=== PATIENT | male | born 1985 | race Caucasian/White ===

== ENCOUNTER 2023-11-27 13:22 | Emergency (ER) | payer OTHER, SELFPAY ==
[2023-11-27 13:25] VITALS: BP 164/111; PULSE 110; RESP 18; TEMP 37; O2SAT 100; BMI 27.8
--- NOTE | 2023-11-27 13:49 | RAD_ITS ---
EXAM: XR CHEST, 1 VIEW CLINICAL INDICATION: injury TECHNIQUE: Frontal view of the chest. COMPARISON: No relevant prior studies available. FINDINGS: LUNGS AND PLEURAL SPACES: Normal. No consolidation or edema. No pneumothorax. No effusion. HEART: Normal heart size. MEDIASTINUM: No mediastinal or hilar mass. BONES/JOINTS: No acute abnormality. RAD/Chest 1 View (Portable) IMPRESSION: No acute cardiopulmonary disease. Electronically Signed: Hemal Hassan MD at 15:05 EST ,
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
[2023-11-27] MEDS: Ibuprofen 600 MG Tablet PO (14:17)
--- NOTE | 2023-11-27 14:29 | RAD_ITS ---
EXAM: XR STERNUM, 2 OR MORE VIEWS CLINICAL INDICATION: pain TECHNIQUE: Lateral and oblique views of the sternum. COMPARISON: No relevant prior studies available. FINDINGS: BONES/JOINTS: No acute abnormality. SOFT TISSUES: Normal. No soft tissue swelling or gas. No radiopaque foreign body. RAD/Sternum min 2 Views IMPRESSION: Intact sternum. Electronically Signed: Hemal Hassan MD at 15:05 EST ,
--- OUTSIDE RECORDS SUMMARY | 2023-11-27 14:39 | XMS RPT_ITS | CCD ---
Author Name Unknown Address [address] [place] [address] Organization [facility] Care Team Providers Care Hardware Sales Assistant Name Role Phone Sha Luu APRN.CNP Primary Care Provider Lalitha Frausto MD Primary Care Provider LALITHA FRAUSTO Primary Care Unavailable SHA LUU Attending Unavailable SHA LUU Attending Unavailable SHA LUU Primary Care Unavailable Medications Completed/Discontinued Medications Medication Drug Class(es) Dates Sig (Normalized) Sig (Original) hydroCHLOROthiazide 12.5 mg / lisinopril 20 mg oral tablet (5 sources) Thiazide Diuretic, Angiotensin Converting Enzyme Inhibitor Start: 12-07-2022 take 1 tablet by mouth once daily in the morning lisinopril-hydr oCHLOROthiazide (PRINZIDE,ZESTO RETIC) 20-12.5 mg per tablet Indications: Hypertension, essential Take 1 tablet by mouth every morning. 90 tablet 3 12/07/2022 Active Problems Active Problems Problem Classification Problem Date Documented Da te Episodic/Chronic Essential hypertension (3 sources) Essential hypertension; Translations: [Essential (primary) hypertension] Onset: 12-07-2022 Chronic Viral infection (6 sources) Herpes simplex; Translations: [Herpesviral infection, unspecified] Onset: 12-24-2008 12-24-2008 Episodic Past or Other Problems Problem Classification Problem Date Documented Da te Episodic/Chronic Immunizations and screening for infectious disease (5 sources) Patient encounter status; Translations: [Encounter for immunization] Onset: 10-20-2018 Episodic Other and unspecified benign neoplasm (8 sources) Dysplastic nevus of trunk; Translations: [Melanocytic nevi of trunk] Onset: 02-04-2011 02-04-2011 Episodic Other and unspecified benign neoplasm (4 sources) Melanocytic nevus of trunk; Translations: [Melanocytic nevi of trunk] Onset: 02-04-2011 02-04-2011 Episodic Other and unspecified benign neoplasm (4 sources) Melanocytic nevus of upper limb; Translations: [Melanocytic nevi of unspecified upper limb, including shoulder] Onset: 02-04-2011 02-04-2011 Episodic Other and unspecified benign neoplasm (4 sources) Melanocytic nevus of scalp; Translations: [Melanocytic nevi of scalp and neck] Onset: 02-04-2011 02-04-2011 Episodic Results Test Name Value Interpretation Reference Range Facil ity Vital Signs Date Time Vital Sign Value Performing Clinician Faci lity 07-30-2023 07:57-0400 Diastolic blood pressure 84 mm[Hg] Sha Jus ROOF TRUSS BUILDER.INFRASTRUCTURE ANALYST Work Phone: [facility] 07-30-2023 07:57-0400 Systolic blood pressure 132 mm[Hg] Sha Jus ROOF TRUSS BUILDER.INFRASTRUCTURE ANALYST Work Phone: [facility] 07-30-2023 07:45-0400 Body weight 89.36 kg Sha Jus ROOF TRUSS BUILDER.INFRASTRUCTURE ANALYST Work Phone: [facility] 07-30-2023 07:45-0400 Heart rate 85 /min Sha Jus ROOF TRUSS BUILDER.INFRASTRUCTURE ANALYST Work Phone: [facility] 07-30-2023 07:45-0400 Respiratory rate 16 /min Sha Jus ROOF TRUSS BUILDER.INFRASTRUCTURE ANALYST Work Phone: [facility] 12-07-2022 07:24-0500 Diastolic blood pressure 84 mm[Hg] Sha Jus ROOF TRUSS BUILDER.INFRASTRUCTURE ANALYST Work Phone: [facility] 12-07-2022 07:24-0500 Systolic blood pressure 130 mm[Hg] Sha Jus ROOF TRUSS BUILDER.INFRASTRUCTURE ANALYST Work Phone: [facility] 12-07-2022 07:15-0500 Body temperature 97.11 [degF] Sha Jus ROOF TRUSS BUILDER.INFRASTRUCTURE ANALYST Work Phone: [facility] 12-07-2022 07:15-0500 Body weight 91.63 kg Sha Jus ROOF TRUSS BUILDER.INFRASTRUCTURE ANALYST Work Phone: [facility] 12-07-2022 07:15-0500 Heart rate 87 /min Sha Jus ROOF TRUSS BUILDER.INFRASTRUCTURE ANALYST Work Phone: [facility] 12-07-2022 07:15-0500 Respiratory rate 16 /min Sha Jus ROOF TRUSS BUILDER.INFRASTRUCTURE ANALYST Work Phone: [facility] 12-07-2022 07:15-0500 SaO2% (BldA) [Mass fraction] 99 % Sha Jus ROOF TRUSS BUILDER.INFRASTRUCTURE ANALYST Work Phone: [facility] 06-09-2022 13:22-0400 Diastolic blood pressure 88 mm[Hg] Sha Jus ROOF TRUSS BUILDER.INFRASTRUCTURE ANALYST Work Phone: [facility] 06-09-2022 13:22-0400 Systolic blood pressure 132 mm[Hg] Sha Jus ROOF TRUSS BUILDER.INFRASTRUCTURE ANALYST Work Phone: [facility] 06-09-2022 13:20-0400 Body temperature 97.2 [degF] Sha Jus ROOF TRUSS BUILDER.INFRASTRUCTURE ANALYST Work Phone: [facility] 06-09-2022 13:20-0400 Body weight 83.46 kg Sha Jus ROOF TRUSS BUILDER.INFRASTRUCTURE ANALYST Work Phone: [facility] 06-09-2022 13:20-0400 Heart rate 64 /min Sha Jus ROOF TRUSS BUILDER.INFRASTRUCTURE ANALYST Work Phone: [facility] 06-09-2022 13:20-0400 Respiratory rate 14 /min Sha Jus ROOF TRUSS BUILDER.INFRASTRUCTURE ANALYST Work Phone: [facility] Encounters Encounter Date Encounter Type Care Provider Facility Start: 07-30-2023 End: 07-30-2023 [facility] Facility:[facility] Start: 07-30-2023 End: 07-30-2023 Patient encounter procedure Sha Luu ROOF TRUSS BUILDER.INFRASTRUCTURE ANALYST Work Phone: [facility] Procedures Date Procedure Procedure Detail Performing Clinician Start: 06-09-2022 Adult depression screening assessment Sha Luu ROOF TRUSS BUILDER.INFRASTRUCTURE ANALYST Work Phone: Start: 04-23-2021 Lipid 1996 panel - S river or Plasma Sha Jus ROOF TRUSS BUILDER.INFRASTRUCTURE ANALYST Work Phone: Plan of Treatment Date Care Activity Detail Author Start: 06-09-2032 Urine microalbumin profile [facility] Start: 04-23-2026 Lipid 1996 panel - S river or Plasma Lipid Screening [facility] Start: 04-23-2026 LIPID SCREEN LIPID SCREEN [facility] Start: 07-30-2024 Annual PCP Team Supervisor Gear Repair bree Disease Visit Annual PCP Team Chronic Disease Visit [facility] Start: 12-07-2023 ANNUAL PCP TEAM BALANCE CLERK BREE DISEASE VISIT ANNUAL PCP TEAM CHRONIC DISEASE VISIT [facility] Start: 12-07-2023 COVID-19 VACCINE (#1) COVID-19 VACCI NE (#1) [facility] Immunizations Immunization Date Immunization Notes Care Provider Fa cility 06-09-2022 tetanus toxoid, redu bartolome diphtheria toxoid, and acellular pertussis vaccine, adsorbed Sha Jus ROOF TRUSS BUILDER.[facility] Work Phone: [facility] 10-12-2018 influenza virus vaccine, unspecified formulation Sha Jus ROOF TRUSS BUILDER.[facility] Work Phone: [facility] 12-24-2010 tetanus toxoid, redu bartolome diphtheria toxoid, and acellular pertussis vaccine, adsorbed Sha Jus ROOF TRUSS BUILDER.[facility] Work Phone: [facility] Work Phone: 10-25-2002 hepatitis B vaccine, pediatric or pediatric/adolescent dosage Sah Jus ROOF TRUSS BUILDER.INFRASTRUCTURE ANALYST Work Phone: [facility] Work Phone: 05-22-2002 hepatitis B vaccine, pediatric or pediatric/adolescent dosage Sha Jus ROOF TRUSS BUILDER.[facility] Work Phone: [facility] Work Phone: 04-19-2002 hepatitis B vaccine, pediatric or pediatric/adolescent dosage Sha Jus ROOF TRUSS BUILDER.INFRASTRUCTURE ANALYST Work Phone: [facility] Work Phone: 05-18-1996 measles, mumps and rubella virus vaccine Sha Jus ROOF TRUSS BUILDER.INFRASTRUCTURE ANALYST Work Phone: [facility] Work Phone: 02-08-1989 diphtheria, tetanus toxoids and acellular pertussis vaccine, unspecified formulation Sha Luu APRN.INFRASTRUCTURE ANALYST Work Phone: [facility] Work Phone: 02-08-1989 trivalent poliovirus vaccine, live, oral Sha Luu APRN.INFRASTRUCTURE ANALYST Work Phone: [facility] Work Phone: Payers Date Payer Category Payer Unknown [id number] 2019 Unknown [id number] Social History Date Type Detail Facility Tobacco smoking stat [facility] Never smoked tobacco [facility] Start: 06-09-2022 End: 07-30-2023 Alcohol intake Current non-drinker of alcohol (finding) [facility] Start: 1985 Sex Assigned At Not on file [facility] Start: 12-07-2022 End: 07-30-2023 History of Social function [facility] Work Phone: Start: 12-07-2022 End: 07-30-2023 Tobacco use panel [facility] Work Phone: Adult Depression Screening Assessment 0 [facility] Work Phone: Progress note 07-30-2023 Note Date & Type Note Facility 07-30-2023 Note HNO ID: [id number] Author: Sha Luu APRN.INFRASTRUCTURE ANALYST Service: ? Author Type: Nurse Practitioner Type: Progress Notes Filed: 07/30/2023 8:05 AM Note Text: Chief Complaint Patient presents with: Wart: LEFT foot HPI Aditya Daniels is a 37 year old male who presents here today for Above Complaints. Patient is here for complaint of wart. Location is left foot, plantar side. Patient expresses some discomfort when walking. Present for months. Patient has tried home remedies already including herbal remedy and acetic acid. Patient would like to do something further to remove this. We discussed options as refer to podiatry, or trial of cryotherapy. We discussed low risk of infection or tissue damage. We discussed side effects such as pain while application of cryotherapy is performed. Patient verbalizes understanding like to proceed. I discussed with patient that possibly he might need to return in 3 to 4 weeks for reapplication. Past medical history, appointments, medications, allergies reviewed. EXAM: BP 132/84 Pulse 85 Resp 16 Wt 89.4 kg (197 lb) BMI 26.72 kg/m? General Appearance: Well appearing, alert, in no acute distress, well-hydrated, well nourished.. Skin: plantar side, left foot, single plantar wart present ASSESSMENT/PLAN: 1. Plantar wart - ICD9: 078.12, ICD10: B07.0 - Liquid nitrogen use was indicated and chosen by the patient. Explained expected blistering and scabbing reaction that is expected. Two rounds of an approximate 5-10 second burst of liquid nitrogen was applied to the one warts on the plantar aspect of the left foot, with a 45 second thaw in between applications. Patient Tolerated application without any problems. Only minimal discomfort. No questions were verbalized. Sha Luu APRN.CNP RTO in 3-4 weeks if needing This note was partly generated using [employer] voice recognition dictation and may contain some misspelled or inaccurate words missed on review. [facility] Instructions 07-30-2023 Patient Instructions Note Date & Type Note Facility 07-30-2023 Instructions Sha Luu APRN.CNP - 07/30/2023 7:58 AM EDT Please do not cover the area. It will turn red or black and eventually peel off or fall off. If not resolving, please return in 3 to 4 weeks for reapplication. Please follow-up sooner if you have any drainage, warmth, swelling of the foot. Sha Luu APRN.CNP documented in this encounter [facility] History of Present illness Narrative 07-30-2023 Sha Luu APRN.CNP - 07/30/2023 7:40 AM EDT Note Date & Type Note Facility 07-30-2023 History of Presen t illness Narrative Chief Complaint Patient presents with: Wart: LEFT foot HPI Aditya Daniels is a 37 year old male who presents here today for Above Complaints. Patient is here for complaint of wart. Location is left foot, plantar side. Patient expresses some discomfort when walking. Present for months. Patient has tried home remedies already including herbal remedy and acetic acid. Patient would like to do something further to remove this. We discussed options as refer to podiatry, or trial of cryotherapy. We discussed low risk of infection or tissue damage. We discussed side effects such as pain while application of cryotherapy is performed. Patient verbalizes understanding like to proceed. I discussed with patient that possibly he might need to return in 3 to 4 weeks for reapplication. Past medical history, appointments, medications, allergies reviewed. EXAM: BP 132/84 Pulse 85 Resp 16 Wt 89.4 kg (197 lb) BMI 26.72 kg/m General Appearance: Well appearing, alert, in no acute distress, well-hydrated, well nourished.. Skin: plantar side, left foot, single plantar wart present ASSESSMENT/PLAN: 1. Plantar wart - ICD9: 078.12, ICD10: B07.0 - Liquid nitrogen use was indicated and chosen by the patient. Explained expected blistering and scabbing reaction that is expected. Two rounds of an approximate 5-10 second burst of liquid nitrogen was applied to the one warts on the plantar aspect of the left foot, with a 45 second thaw in between applications. Patient Tolerated application without any problems. Only minimal discomfort. No questions were verbalized. Sha Luu APRN.CNP RTO in 3-4 weeks if needing This note was partly generated using [employer] voice recognition dictation and may contain some misspelled or inaccurate words missed on review. documented in this encounter [facility] Progress note 12-07-2022 Note Date & Type Note Facility 12-07-2022 Note HNO ID: [id number] Author: Sha Luu APRN.CNP Service: ? Author Type: Nurse Practitioner Type: Progress Notes Filed: 12/07/2022 7:29 AM Note Text: Chief Complaint Patient presents with: F/U 6 Month HPI Aditya Daniels is a 37 year old male who presents here today for Chronic Medical Conditions. follow up for HTN. Doing okay. No complaints. No side effects from medications. No CP, shortness of breath, or syncope. Past medical history, appointments, medications, allergies reviewed. EXAM: BP 130/84 (BP Site: Left Arm) Pulse 87 Temp 36.2 ?C (97.1 ?F) (Left Tympanic) Resp 16 Wt 91.6 kg (202 lb) SpO2 99% BMI 27.40 kg/m? General Appearance: Well appearing, alert, in no acute distress, well-hydrated, well nourished.. Lungs: Lungs clear to auscultation. No wheezing, rhonchi, rales.. Heart: RRR without murmur, gallop, or rubs. No ectopy. Extremities: No deformities, edema ASSESSMENT/PLAN: 1. Hypertension, essential - ICD9: 401.9, ICD10: I10 - good control - Continue current medication(s) - Check BMP - Recommended regular aerobic exercise. - Recommend home blood pressure monitoring, to bring results in on next visit - Goal of BP <130/80 - BASIC METABOLIC PNL - LISINOPRIL 20 MG-HYDROCHLOROTHIAZIDE 12.5 MG TABLET Sha Luu APRN.INFRASTRUCTURE ANALYST RTO in 12 months, sooner if needed. This note was partly generated using [employer] voice recognition dictation and may contain some misspelled or inaccurate words missed on review. [facility] History of Present illness Narrative 12-07-2022 Sha Luu APRN.CNP - 12/07/2022 7:20 AM EST Note Date & Type Note Facility 12-07-2022 History of Presen t illness Narrative Chief Complaint Patient presents with: F/U 6 Month HPI Aditya Daniels is a 37 year old male who presents here today for Chronic Medical Conditions. follow up for HTN. Doing okay. No complaints. No side effects from medications. No CP, shortness of breath, or syncope. Past medical history, appointments, medications, allergies reviewed. EXAM: BP 130/84 (BP Site: Left Arm) Pulse 87 Temp 36.2 C (97.1 F) (Left Tympanic) Resp 16 Wt 91.6 kg (202 lb) SpO2 99% BMI 27.40 kg/m General Appearance: Well appearing, alert, in no acute distress, well-hydrated, well nourished.. Lungs: Lungs clear to auscultation. No wheezing, rhonchi, rales.. Heart: RRR without murmur, gallop, or rubs. No ectopy. Extremities: No deformities, edema ASSESSMENT/PLAN: 1. Hypertension, essential - ICD9: 401.9, ICD10: I10 - good control - Continue current medication(s) - Check BMP - Recommended regular aerobic exercise. - Recommend home blood pressure monitoring, to bring results in on next visit - Goal of BP <130/80 - BASIC METABOLIC PNL - LISINOPRIL 20 MG-HYDROCHLOROTHIAZIDE 12.5 MG TABLET Sha Luu APRN.CNP RTO in 12 months, sooner if needed. This note was partly generated using [employer] voice recognition dictation and may contain some misspelled or inaccurate words missed on review. documented in this encounter [facility] Note 06-10-2022 Telephone Encounter - Kalina Mcleod Ma - 06/10/2022 8:28 AM EDTTelephone Encounter - Kalina Mcleod Ma - 06/10/2022 8:27 AM EDT Note Date & Type Note Facility 06-10-2022 Miscellaneous Notes Formattin g of this note might be different from the original. Letter mailed to pt home of results. Kalina Mcleod MA ----- Message from Sha Luu APRN.CNP sent at 06/10/2022 7:32 AM EDT ----- Please let the patient know that his glucose, kidney function and electrolytes were normal. Continue with current medication. Sha Luu CNP documented in this encounter [facility] History of Present illness Narrative 06-09-2022 Sha Luu APRN.INFRASTRUCTURE ANALYST - 06/09/2022 1:20 PM EDT Note Date & Type Note Facility 06-09-2022 History of Presen t illness Narrative Chief Complaint Patient presents with: F/U 6 months HPI Aditya Daniels is a 36 year old male who presents here today for Chronic Medical Conditions. Due for lab to be completed for this visit. HTN: Patient is compliant with meds Yes Monitors bp at home: No. Denies side effects: Yes. Chest pain: No. Dyspnea: No. Edema: No. Palpitations: No. Syncope: No. Headache: No. Dizziness: No. Depression Screening 10/12/2018 06/09/2022 PHQ-2 Score 0 0 Depression screening tool completed and reviewed. Based on score and interview, patient is not at risk for depression. Screening tool discussed with patient, and I recommended no further intervention at this time. Due for tetanus. Has deferred the COVID vaccine in past conversations. Past medical history, appointments, medications, allergies reviewed. Previous Medical History PAST MEDICAL HISTORY Diagnosis Date Herpes labialis Previous Surgical History PAST SURGICAL HISTORY Procedure Laterality Date NONE Family History FAMILY HISTORY Problem Relation Age of Onset Breast Cancer Maternal Grandmother Coronary Artery Disease Paternal Grandmother [place] at 50 Hypertension Father Diabetes Maternal Uncle Diabetes Maternal Uncle Diabetes Maternal Uncle Patient Allergies ALLERGIES No Known Allergies Current Medications Current Outpatient Medications on File Prior to Visit Medication Sig lisinopril-hydroCHLOROthiazide (PRINZIDE,ZESTORETIC) 20-12.5 mg per tablet Take 1 tablet by mouth every morning. No current facility-administered medications on file prior to visit. Social History Social History Tobacco Use Smoking status: Never Smokeless tobacco: Never Substance Use Topics Alcohol use: No Drug use: No REVIEW OF SYSTEMS: as above Reviewed relevant PMHx, PSHx, Social Hx, current medications and allergies. EXAM: BP 132/88 Pulse 64 Temp 36.2 C (97.2 F) (Knox Thermistor) Resp 14 Wt 83.5 kg (184 lb) BMI 24.95 kg/m General Appearance: Well appearing, alert, in no acute distress, well-hydrated, well nourished.. Lungs: Lungs clear to auscultation. No wheezing, rhonchi, rales.. Heart: RRR without murmur, gallop, or rubs. No ectopy. Extremities: No deformities, edema Health Maintenance List COVID-19 VACCINE(1) Never done DEPRESSION SCREENING due on 10/12/2019 DTAP,TDAP,TD(3 - Td or Tdap) due on 12/24/2020 INFLUENZA(1) due on 06/11/2022 ANNUAL PCP TEAM CHRONIC DISEASE VISIT due on 12/08/2022 BP CONTROLLED (<130/80) due on 12/08/2022 LIPID SCREEN due on 04/23/2026 HEPATITIS B Completed HEPATITIS C SCREENING Discontinued HIV SCREENING Discontinued Data reviewed No labs completed. ASSESSMENT/PLAN: 1. Hypertension, essential - ICD9: 401.9, ICD10: I10 (primary diagnosis) - good control - Continue current medication(s) - Recommended regular aerobic exercise. - Recommend home blood pressure monitoring, to bring results in on next visit - Goal of BP <130/80 2. Encounter for immunization - ICD9: V03.89, ICD10: Z23 - TDAP VACCINE AGE 7+ IM Sha Luu APRN.INFRASTRUCTURE ANALYST RTO in 6 months, sooner if needed. Get BMP today. This note was partly generated using [employer] voice recognition dictation and may contain some misspelled or inaccurate words missed on review. documented in this encounter [facility] Evaluation note Note Date & Type Note Facility documented in this encounter [facility] Evaluation note Note Date & Type Note Facility documented in this encounter [facility] Evaluation note Note Date & Type Note Facility documented in this encounter [facility] Summary Purpose Family History No Family History Records Found Advance Directives No Advanced Directives Records Found Additional Source Comments Source Comments (unrecognize d section and content) In the event this informatio n is protected by the Federal Confidentiality of Alcohol and Drug Abuse Patient Records regulations: The Federal rules restrict any use of the information to criminally investigate or prosecute any alcohol or drug abuse patient[facility] the event this information is protected by the Federal Confidentiality of Alcohol and Drug Abuse Patient Records regulations: The Federal rules restrict any use of the information to criminally investigate or prosecute any alcohol or drug abuse patient.[facility] the event this information is protected by the Federal Confidentiality of Alcohol and Drug Abuse Patient Records regulations: The Federal rules restrict any use of the information to criminally investigate or prosecute any alcohol or drug abuse patient.[facility] the event this information is protected by the Federal Confidentiality of Alcohol and Drug Abuse Patient Records regulations: The Federal rules restrict any use of the information to criminally investigate or prosecute any alcohol or drug abuse patient.[facility] Reason for Visit (unrecogniz ed section and content) Reason Comments Results Reason Comments F/U 6 Month Reason Comments Wart LEFT foot Care Teams (unrecognized sec tion and content) Hardware Sales Assistant Relationship Specialty Start Date End Date Sha Luu APRN.INFRASTRUCTURE ANALYST [address] [place] [address] PCP - General Family Practice 07/19/21 Hardware Sales Assistant Relationship Specialty Start Date End Date Sha Luu APRN.INFRASTRUCTURE ANALYST [address] [place] [address] PCP - General Family Medicine 07/19/21 Hardware Sales Assistant Relationship Specialty Start Date End Date Lalitha Frausto MD [address] [place] [address] PCP - General Family Medicine 07/28/23 (unrecognized sect ion and content) No Status Records Found INFORMATION SOURCE (unrecogn ized section and content) FOR RECORDS PERTAINING TO PATIENTS WHO ARE OR HAVE BEEN ENROLLED IN A CHEMICAL DEPENDENCY/SUBSTANCEABUSE PROGRAM, SOME INFORMATION MAY BE OMITTED. This clinical summary was aggregated from multiple sources. Caution should be exercised in using it in the provision of clinical care. This summary normalizes information from multiple sources, and as a consequence, information in this document may materially change the coding, format and clinical context of patient data. In addition, data may be omitted in some cases. CLINICAL DECISIONS SHOULD BE BASED ON THE PRIMARY CLINICAL RECORDS. [employer] provides no warranty or guarantee of the accuracy or completeness of information in this document.
[2023-11-27] MEDS: tiZANidine HCl 2 MG Tablet PO (15:03)
[2023-11-27 15:33] VITALS: BP 141/79; PULSE 82; RESP 17; TEMP 36.9; O2SAT 99
[2023-11-27 15:34] VITALS: O2SAT 99
== END 2023-11-27 15:36 | disposition home or self-care (01) ==
PROVIDERS: Emergency Provider Student in an Organized Health Care Education/Training Program; PCP Family Medicine; Visit Provider Student in an Organized Health Care Education/Training Program
DX: S39.012A Strain of muscle, fascia and tendon of lower back, initial encounter (principal); S20.219A Contusion of unspecified front wall of thorax, initial encounter; I10 Essential (primary) hypertension; Z79.899 Other long term (current) drug therapy; V47.5XXA Car driver injured in collision with fixed or stationary object in traffic accident, initial encounter
CPT/HCPCS: 71045; 71120; 99283